=== PATIENT | male | born 1960 | race Caucasian/White ===

== ENCOUNTER 2020-02-25 11:37 | Outpatient (CLI) | payer OTHER, SELFPAY ==
--- NOTE | 2020-02-25 12:04 | ECG_ITS ---
[facility] Test Date: 2020-02-25 Pat Name: Brennen De La Cruz Department: Room: Gender: Male Curriculum Development Manager: Honey Gallardo : 1960 Requested By: Blanca Razo Order Number: [id number] Patrick MD: YUNIOR AGUIAR Interpretive Statements NAME OF STUDY: TREADMILL STRESS TEST INDICATION: Chest Pain EXERCISE DATA: The patient was exercised by Jean-Claude protocol. Baseline heart rate was 56 beats per minute. Baseline blood pressure was 147/90 millimeters of mercury. Target heart rate was 163 beats per minute. Maximum heart rate achieved was 158, which was 96 % of the target heart rate. Maximum blood pressure was 219/102 millimeters of mercury. Total exercise time was 8 minutes 41 seconds. Maximum METs achieved was 10.2, maximum VO2 was 35.7. The reason for ending the test was maximum effort achieved. The patient complained of shortness of breath during the stress test, which then resolved at the end of the test. ELECTROCARDIOGRAM: BASELINE: Sinus rhythm, normal axis, no significant ST-T changes at the baseline noted. EXERCISE: At the peak exercise level, no significant ST-T changes suggestive of ischemia noted. RECOVERY: During the recovery period, heart rate dropped appropriately. No significant ST-T changes in the recovery suggestive of ischemia noted. CONCLUSION: 1. Exercise capacity good. 2. Heart rate response was appropriate. 3. Blood pressure response was hypertensive. 4. Symptoms not suggestive of ischemia. 5. Electrocardiogram portion of the stress test was not suggestive of ischemia. Electronically Signed On 03-14-2020 15:12:37 DIESEL SERVICE JOURNEYMAN by YUNIOR AGUIAR [id number]
[2020-02-25 12:08] VITALS: BMI 23.7
[2020-02-25 12:41] VITALS: BP 177/100; PULSE 99
== END 2020-02-25 11:38 | disposition home or self-care (01) ==
LOC: CDL 11:40
PROVIDERS: PCP Family Medicine; Visit Provider Family Medicine
DX: R00.0 Tachycardia, unspecified (principal)
CPT/HCPCS: 93017

== ENCOUNTER 2023-04-12 22:07 | Inpatient (IN) | payer OTHER, SELFPAY ==
[2023-04-12 22:10] VITALS: BP 131/107; PULSE 182; RESP 18; TEMP 36.4; O2SAT 100; BMI 25.7
--- NOTE | 2023-04-12 22:19 | XRR_ITS ---
PROCEDURE INFORMATION: Exam: XR Chest Exam date and time: 04/12/2023 10:26 PM Age: 62 years old Clinical indication: Other: Palpitations TECHNIQUE: Imaging protocol: Radiologic exam of the chest. Views: 1 view. COMPARISON: No relevant prior studies available. FINDINGS: Lungs: Unremarkable. No consolidation. Pleural spaces: Unremarkable. No pleural effusion. No pneumothorax. Heart/Mediastinum: Unremarkable. No cardiomegaly. Bones/joints: Unremarkable. XR/XR chest 1V portable [id number] IMPRESSION: No acute findings.
--- NOTE | 2023-04-12 22:19 | ECG_ITS ---
[facility] Test Date: 2023-04-12 Pat Name: Brennen De La Cruz Department: Room: Gender: Male Visual Merchandise Manager: : 1960 Requested By: Oneil West Order Number: [id number] Nguyen MD: Ariel Amaya M.D. Measurements Intervals [place] Rate: 83 P: 76 DC: 157 QRS: 74 QRSD: 89 T: 69 QT: 368 QTc: 434 Interpretive Statements SINUS RHYTHM No previous ECG available for comparison Electronically Signed On 04-13-2023 8:20:12 SUBSCRIPTION AGENT by Ariel Amaya M.D. [id number]
[2023-04-12] MEDS: dilTIAZem 5 mg/mL SDV 5 mL 20 MG IVP (22:26)
[2023-04-12] MEDS: sodium chloride 0.9% 1,000 ML 999 ML IV (22:28)
[2023-04-12 22:29] LABS: Basophils # 0.1 10^3/uL (0.0-0.1); Basophils % 0.6 %; Eosinophils # 0.1 10^3/uL (0.0-0.8); Hematocrit 48.5 % (37-53); Lymphocytes # 1.9 10^3/uL (0.8-4.8); Lymphocytes % 18.5 %; Mean Corpuscular HGB Conc 35.3 g/dL (30-55); Mean Corpuscular Hemoglobin 33.8 pg (27-33); Mean Corpuscular Volume 95.8 fl (82-101); Mean Platelet Volume 10.2 fL (7.4-10.4); Monocytes # 0.8 10^3/uL (0.2-0.9); Monocytes % 7.6 %; Neutrophils # 7.22 10^3/uL (1.8-7.7); Nucleated Red Blood Cells % 0 %; Platelet Count 215 10^3/cmm (157-399); Red Blood Count 5.06 10^6/uL (3.85-5.65); Red Cell Distribution Width 12.8 % (12.1-15.1); White Blood Count 10.02 10^3/uL (3.29-11.43)
--- NOTE | 2023-04-12 22:30 | ED_ITS ---
HPI - Arrhythmia/Palpitations 2 General: Chief Complaint: Arrhythmia/Palpitations Stated Complaint: Chest Pains\Feeling Sick Time Seen by Provider: 04/12/23 22:30 History of Present Illness: 62-year-old male presents emerged part w ith complaints of feeling like his heart is racing. He states this started approximately 1 and half hours prior to arrival. He states he does feel nauseated and dizzy. He states he is generally healthy person and has had no history of cardiac abnormalities. He states that he takes no medication at present. He states that his chest discomfort was a 5 out of 10 when his heart started racing. He states he does smoke three quarters of a pack of cigarettes daily and drinks a pint of Aisha Obinna daily. Review of Systems 2 General: Reports: 10 or more systems reviewed and unremarkable except in HPI and below Card: Reports: palpitations and irregular heart rhythm Physical Exam 2 Narrative: EXAM NARRATIVE: Constitutional: the patient appears well nourished and with normal development. Vital signs reviewed as documented. HENMT: Normocephalic, atraumatic. Extermal ears with normal appearance without drainage. Nose without drainage, normal appearance. Mucus membranes moist. Neck is supple, No jugular venous distension, trachea is midline, no appreciable carotid bruits. No lymphadenopathy. No meningeal signs. Flexion, extension and lateral rotation is without pain. Eyes: Pupils are equal, round, reactive to light and accommodation. No scleral icterus. Extra-ocular movement are intact. Thorax is symmetrical and with equal rise and fall with respirations. Resp: Lungs are clear to auscultation. No wheezes, rales, crackles or ronchi at present. Cardio: Supraventricular tachycardia with a ventricular rate of 188. Positive S1, S2. No appreciable murmurs, rubs or gallops. GI: Abdominal exam reveals normal bowel sounds to all quadrants. No organomegaly. No obvious palpable masses noted. No hepatomegally appreciated. Soft, nontender to palpation. Extremity: Extremities are non-edematous and both femoral and pedal pulses are 2+ and equal bilaterally. Moves all extremities well, sensation in all extremities. Neuro: Alert and oriented x4, person, place, time and situation. Cranial nerves II through XII are grossly intact, there is no focal neurological deficits that I can appreciate at present. Motor strength in the upper and lower extremities are equal and bilateral 5/5. Psych: Cooperative, calm, normal thought process, appropriate judgment. Skin: No lesions, rashes. No gross abnormalities noted. Back: Symmetrical, no obvious deformity, No CVA tenderness Course 2 Vital Signs: Vital signs: Vital Signs Temperature 97.6 F 04/12/23 22:10 Pulse Rate 182 H 04/12/23 22:10 Respiratory Rate 18 04/12/23 22:10 Blood Pressure 131/107 04/12/23 22:10 Pulse Oximetry 100 04/12/23 22:10 Oxygen Delivery Me thod Room Air 04/12/23 22:10 MDM - Arrhythmia/Palpitations Medical Decision Making Physical exam completed document, will obtain cardiac enzymes, twelve-lead EKG chest x-ray obtain a CBC and a CMP as well as provide him IV access and calcium channel renée as well as calcium channel renée drip for his rate control cardiac rhythm. I will provide him admission for additional evaluation treatment and care and consult the hospitalist service for additional evaluation treatment and care to potentially include a cardiology evaluation. Lab Data I reviewed the patient's lab results. 04/12/23 22:23 04/12/23 22:23 Radiology Impressions Chest X-Ray 04/12/23 22:19 IMPRESSION: No acute findings. Laboratory Results WBC 10.02 10^3/uL (3.29-11.43) 04/12/23 22: RBC 5.06 10^6/uL (3.85-5.65) 04/12/23 22: Hgb 17.10 g/dL (11.27-16.99) H 04/12/23 22: Hct 48.5 % (37-53) 04/12/23 22: MCV 95.8 fl (82-101) 04/12/23 22: MCH 33.8 pg (27-33) H 04/12/23 22: MCHC 35.3 g/dL (30-55) 04/12/23 22: RDW 12.8 % (12.1-15.1) 04/12/23 22: Plt Count 215 10^3/cmm (157-399) 04/12/23 22: MPV 10.2 fL (7.4-10.4) 04/12/23: Neut % (Auto) 72.0 % 04/12/23 22:23 Lymph % (Auto) 18.5 % 04/12/23 22:23 [place] % (Auto) 7.6 % 04/12/23 22:23 Eos % (Auto) 1.0 % 04/12/23 22:23 Baso % (Auto) 0.6 % 04/12/23 22:23 Neut # (Auto) 7.22 10^3/uL (1.8-7.7) 04/12/23 22:23 Lymph # (Auto) 1.9 10^3/uL (0.8-4.8) 04/12/23 22:23 [place] # (Auto) 0.8 10^3/uL (0.2-0.9) 04/12/23 22:23 Eos # (Auto) 0.1 10^3/uL (0.0-0.8) 04/12/23 22:23 Baso # (Auto) 0.1 10^3/uL (0.0-0.1) 04/12/23 22:23 Nucleated RBC % (auto) 0 % 04/12/23 22: Nucleated RBCs # 0.0 /100WBC 04/12/23 22:23 PT 12.60 SECONDS (12.1-14.9) 04/12/23 22:23 INR 0.91 (0.8-1.2) 04/12/23 22:23 APTT 28.6 SECONDS (23.9-36.7) 04/12/23 22:23 Sodium 138 mmol/L (136-145) 04/12/23 22:23 Potassium 4.2 mmol/L (3.5-5.1) 04/12/23 22:23 Chloride 98 mmol/L (98-107) 04/12/23 22:23 Carbon Dioxide 23 mmol/L (22-29) 04/12/23 22:23 Anion Gap 21.2 (5-19) H 04/12/23 22:23 BUN 12 mg/dL (8-23) 04/12/23 22:23 Creatinine 1.0 mg/dL (0.7-1.2) 04/12/23 22:23 GFR Calculation 76.2 mL/min (90-130) L 04/12/23 22:23 Glucose 144 mg/dL (65-115) H 04/12/23 22:23 Calculated Osmolality 288 mOsm/kg (285-295) 04/12/23 22:23 Calcium 9.7 mg/dL (8.5-10.5) 04/12/23 22:23 Total Bilirubin 0.5 mg/dL (0.15-1.2) 04/12/23 22:23 AST 106 U/L (0-40) H 04/12/23 22:23 ALT 70 U/L (0-41) H 04/12/23 22:23 Alkaline Phosphatase 80 U/L (40-130) 04/12/23 22:23 Troponin T Baseline 12 ng/L (0-15) 04/12/23 22:23 NT-Pro-B Natriuret Pep 158 pg/mL (0-125) H 04/12/23 22:23 Total Protein 7.6 g/dL (6.6-8.7) 04/12/23 22:23 Albumin 4.8 g/dL (3.5-5.2) 04/12/23 22:23 Globulin 2.8 g/dL (1.3-4.6) 04/12/23 22:23 All radiology interpretation(s) finalized by discharge EKG Data EKG 1: Interpretation: Twelve-lead EKG obtained at 2216 reviewed at 2216 shows supraventricular tachycardia with a ventricular rate of 182. QRS duration 83 QT 243 QTc 338 there is no discernible ST elevation or depression to demonstrate acute ischemia at present. Other EKG comments: Chest X-Ray 04/12/23 22:19 IMPRESSION: No acute findings. Discharge Plan Discharge Patient Disposition: Admitted As Inpatient Clinical Impression: Supraventricular tachycardia Chest pain Qualifiers: Chest pain type: unspecified Qualified Code(s): R07.9 - Chest pain, unspecified Condition: Stable Coding Level of Care Code ED Physician Coder for Ady Aleman
[2023-04-12] MEDS: dilTIAZem 100 MG in sodium chloride 0.9% (add-van) 100 ML IV (22:47)
[2023-04-12 22:49] LABS: Troponin(5th) Baseline 12 ng/L (0-15)
[2023-04-12 22:58] LABS: Alanine Aminotransferase 70 U/L (0-41); Albumin Level 4.8 g/dL (3.5-5.2); Alkaline Phosphatase 80 U/L (40-130); Anion Gap 21.2 (5-19); Aspartate Amino Transferase 106 U/L (0-40); Blood Urea Nitrogen 12 mg/dL (8-23); Calcium 9.7 mg/dL (8.5-10.5); Carbon Dioxide 23 mmol/L (22-29); Chloride 98 mmol/L (98-107); Creatinine Clr Calc Pharmacy 90.0369; Globulin 2.8 g/dL (1.3-4.6); Glomerular Filtration Rate 76.2 mL/min (90-130); Glucose 144 mg/dL (65-115); NT Pro B Type Natriuretic Pept 158 pg/mL (0-125); Osmolality Calculated 288 mOsm/kg (285-295); Potassium 4.2 mmol/L (3.5-5.1); Sodium 138 mmol/L (136-145); Total Bilirubin 0.5 mg/dL (0.15-1.2); Total Protein 7.6 g/dL (6.6-8.7)
[2023-04-12 23:10] LABS: INR 0.91 (0.8-1.2)
[2023-04-12 23:11] LABS: Partial Thromboplastin Time 28.6 SECONDS (23.9-36.7)
--- NOTE | 2023-04-12 23:14 | P.HP_ITS ---
Providers/Chief Complaint 2 Primary Care Provider: Blanca Mg MD Chief Complaint: Chest Pains\Feeling Sick History of Present Illness Brennen De La Cruz is a 62 year old male who does not have signet past medical history, 2 years ago status post unremarkable, drinks alcohol 1 pint every day, presented with chief complaint palpitation. Patient stating that his symptoms started around 7 PM when he came back from watching basketball game of his grandchild. Patient did not experience any chest pain nausea vomiting or fever. No recent shortness of breath or any triggering event. Patient only had couple of shots today. Does not use any marijuana. In the ER he was diagnosed with SVT he was given adenosine high-dose 12 mg per the ER physician which did not improve his heart rate he was put on Cardizem drip for concern of atrial flutter I have requested TSH, mag level and D-dimer Patient is stating that he has not experienced palpitations in a long time, never had any cardiac issues in the past Review of Systems 2 Const: Denies: fever(s) Eyes: Denies: change in vision ENMT: Denies: throat pain Card: Reports: palpitations; Denies: chest pain Resp: Denies: dyspnea GI: Denies: abdominal pain Medications/Allergies Allergies Allergy/AdvReac Type Severity Reaction Status Date / Time No Known Allergies Allergy Verified 04/12/23 22:33 PFSH Acute 2 PFSH: Medical History No pertinent past medical history Surgical History No pertinent past surgical history Social History (Updated 04/13/23 @ 00:02 by Krista Mullins MD) Alcohol intake: current Alcohol intake frequency: 3 or more drinks per day Alcohol type: hard liquor Vitals/I&O/Wt Last Vital Signs Temp 97.6 F 04/12/23 22:10 Pulse 182 H 04/12/23 22:10 Resp 18 04/12/23 22:10 BP 131/107 04/12/23 22:10 Pulse Ox 100 04/12/23 22:10 O2 Del Method Room Air 04/12/23 22:10 04/12/23 04/12/23 04/13/23 14:59 22:59 06:59 Intake Total 1000 / 1000 Balance 1000 / 1000 Weight last 48 hrs Weight 86.183 kg Physical Exam 2 Narrative: Patient is awake and alert GCS 15 Euvolemic S1, S2 currently in sinus rhythm heart rate in 70s Continue Cardizem drip at 5 Abdomen soft No sign of heart failure GCS 15 Currently Pleasant and cooperative Daughter at the bedside Data 04/12/23 22:23 04/12/23 22:23 A&P Assessment and plan (1) Supraventricular tachycardia: (2) Chest pain: Qualifiers: Chest pain type: unspecified Qualified Code(s): R07.9 - Chest pain, unspecified Plan Tachyarrhythmia, palpitations, related to SVT Heart rate in the ER 180s Patient currently on Cardizem drip Did not respond to adenosine Concern for atrial flutter [id number] score is low to prevent any blood thinner at this point Currently patient is in sinus rhythm on Cardizem drip Add metoprolol, wean off Cardizem drip Will use Lovenox 40 mg DVT prophylaxis Check magnesium TSH free T4 D-dimer and echo I do believe his symptoms are related to alcohol abuse He drinks 1 pint of hard liquor, will put him on CIWA protocol We will check drug screen and alcohol level Full code Cardiac diet Attestations 2 Medical Necessity Statement*: More than 2 midnights anticipated Diagnoses Supraventricular tachycardia I47.10 Chest pain R07.9 Chest pain type: unspecified
[2023-04-12 23:26] VITALS: BP 136/96; PULSE 85; RESP 16; O2SAT 98
[2023-04-12 23:51] LABS: Thyroid Stimulating Hormone 5.06 uIU/mL (0.27-4.20)
--- NOTE | 2023-04-13 00:05 | USCV_ITS ---
Brennen De La Cruz Age: 62 Gender: M : 1960 Exam Date: 04/13/2023 01:38 Ordering Phys: Krista Mullins MD Technologist: Jean-Claude Serrano [place] [facility] [place]: SVT. No history of cardiac intervention per patient. BP: 136 / 96 HR: 70 Rhythm: Sinus Technical Quality: Adequate MEASUREMENTS (Male / Female) Normal Values 2D ECHO LV Diastolic Diameter PLAX 3.7 cm 4.2 - 5.9 / 3.9 - 5.3 cm LV Systolic Diameter PLAX 2.7 cm IVS Diastolic Thickness 0.9 cm 0.6 - 1.0 / 0.6 - 0.9 cm IVS Systolic Thickness 1.2 cm LVPW Diastolic Thickness 0.7 cm 0.6 - 1.0 / 0.6 - 0.9 cm LVPW Systolic Thickness 1.1 cm LVOT Diameter 2.0 cm LV Ejection Fraction 2D Teich 55.6 % LV Ejection Fraction MOD 2C 69.3 % LV Ejection Fraction 2C AL 71.4 % LA Diameter 2.5 cm LA Width 2.6 cm LA Height 4.5 cm RA Width 3.0 cm RA Height 3.8 cm Aorta at Sinotubular Diameter 3.3 cm IVC Diameter 1.3 cm M-MODE Aortic Annulus Diameter 3.2 cm LA Ao Ratio MM 0.8 MV E Point Septal Separation 0.2 cm DOPPLER AV Peak Velocity 109.0 cm/s LVOT Peak Velocity 98.0 cm/s AV Area Cont Eq vti 2.7 cm squared AV Area Cont Eq pk 2.7 cm squared MV Area PHT 3.7 cm squared Mitral E to A Ratio 1.3 MV E' Velocity 48.5 cm/s Mitral E to MV E' Ratio 8.7 Mitral E to LV E' Lateral Ratio 8.0 Mitral E to LV E' Septal Ratio 9.7 TV Peak E Velocity 48.0 cm/s PV Peak Velocity 88.0 cm/s RV Acceleration Time 0.1 s RV Ejection Time 0.3 s RV AcT/ET 0.3 FINDINGS Left Ventricle Normal left ventricular size and systolic function, EF 64 %. No regional wall motion abnormalities. Right Ventricle The right ventricle is normal in size and function. Right Atrium The right atrium is normal in size. Left Atrium The left atrium is normal in size. Mitral Valve No gross abnormalities noted Aortic Valve Thickened aortic valve. Tricuspid Valve No gross abnormalities noted Pulmonic Valve Trace pulmonary valve regurgitation. Pericardium Normal pericardium without effusion. Aorta Aortic root, at the level of the isthmus, measured 3.7 cm IVC The inferior vena cava appears normal. CONCLUSIONS Normal left ventricular size and systolic function, EF 64 %. No regional wall motion abnormalities. Thickened aortic valve. Mildly dilated aortic root, measuring 3.7 cm in diameter at the level of the isthmus. There are no intracardiac masses. There is no pericardial effusion. No similar previous studies are available for comparison Dr Kelvin Shirley MD FAC (Electronically Signed) Final Date: 13 April 2023 12:23 S
[2023-04-13 00:07] VITALS: BMI 25.7
[2023-04-13 00:12] VITALS: BP 136/96; PULSE 85; RESP 16; TEMP 36.4; O2SAT 98
--- NOTE | 2023-04-13 00:19 | ECG_ITS ---
[facility] Test Date: 2023-04-13 Pat Name: Brennen De La Cruz Department: Room: 111 Gender: Male Grade Checker: : 1960 Requested By: Oneil West Order Number: [id number] Patrick MD: Kelvin Shirley M.D. Measurements Intervals [place] Rate: 64 P: 77 TX: 151 QRS: 76 QRSD: 93 T: 73 QT: 399 QTc: 414 Interpretive Statements SINUS RHYTHM Compared to ECG 04/12/2023 22:47:50 No significant changes Electronically Signed On 04-13-2023 21:50:38 THREAD SINGER by Kelvin Shirley M.D. [id number]
[2023-04-13 01:15] VITALS: PULSE 89; RESP 17; O2SAT 99
[2023-04-13] MEDS: metoprolol tartrate 25 mg Tablet PO ×2 (01:27→09:17)
[2023-04-13 01:42] LABS: Troponin 5 2HR 17.07 ng/L (0-15); Troponin 5 2HR Delta 5.07 ABS# (0-10)
[2023-04-13 01:43] LABS: Phosphorus 2.9 mg/dL (2.5-4.5)
[2023-04-13 01:50] LABS: Free T4 Free Thyroxine 1.09 ng/dL (0.82-1.77)
[2023-04-13 01:56] LABS: Alcohol Level < 10 mg/dL (0-10)
--- NOTE | 2023-04-13 04:19 | ECG_ITS ---
[facility] Test Date: 2023-04-13 Pat Name: Brennen De La Cruz Department: Room: 111 Gender: Male Environmental Program Manager: : 1960 Requested By: Oneil West Order Number: [id number] Patrick MD: Kelvin Shirley M.D. Measurements Intervals [place] Rate: 61 P: 62 HI: 147 QRS: 77 QRSD: 91 T: 96 QT: 440 QTc: 443 Interpretive Statements SINUS RHYTHM Compared to ECG 04/13/2023 01:24:16 No significant changes Electronically Signed On 04-13-2023 21:50:46 FLOOR SUPERVISOR by Kelvin Shirley M.D. [id number]
[2023-04-13 04:34] LABS: Basophils % 0.4 %; Eosinophils % 0.3 %; Hematocrit 48.6 % (37-53); Lymphocytes # 1.2 10^3/uL (0.8-4.8); Lymphocytes % 14.6 %; Mean Corpuscular HGB Conc 33.7 g/dL (30-55); Mean Corpuscular Hemoglobin 33.3 pg (27-33); Mean Corpuscular Volume 98.8 fl (82-101); Mean Platelet Volume 10.6 fL (7.4-10.4); Monocytes # 0.4 10^3/uL (0.2-0.9); Monocytes % 4.4 %; Neutrophils # 6.31 10^3/uL (1.8-7.7); Neutrophils % 79.9 %; Nucleated Red Blood Cells % 0 %; Platelet Count 216 10^3/cmm (157-399); Red Blood Count 4.92 10^6/uL (3.85-5.65); Red Cell Distribution Width 12.8 % (12.1-15.1); White Blood Count 7.89 10^3/uL (3.29-11.43)
[2023-04-13 04:55] LABS: Troponin 5 6HR 15.63 ng/L (0-15); Troponin 5 6HR Delta 3.63 ng/L (0-12)
[2023-04-13 04:56] LABS: Anion Gap 15.7 (5-19); Blood Urea Nitrogen 10 mg/dL (8-23); Calcium 9.3 mg/dL (8.5-10.5); Carbon Dioxide 26 mmol/L (22-29); Chloride 98 mmol/L (98-107); Glomerular Filtration Rate 86.1 mL/min (90-130); Glucose 115 mg/dL (65-115); Osmolality Calculated 280 mOsm/kg (285-295); Potassium 4.7 mmol/L (3.5-5.1); Sodium 135 mmol/L (136-145)
[2023-04-13] MEDS: enoxaparin 40 mg/0.4 mL Syringe SUBCUT (05:40)
[2023-04-13 06:00] VITALS: PULSE 62
[2023-04-13 07:30] VITALS: PULSE 71; RESP 16; O2SAT 97
[2023-04-13] MEDS: thiamine 100 mg Tablet PO (09:17)
[2023-04-13] MEDS: multivitamin therapeutic Tablet 1 TAB PO (09:17)
[2023-04-13] MEDS: magnesium oxide 400 mg tablet PO (09:17)
[2023-04-13] MEDS: folic acid 1 mg Tablet PO (09:17)
[2023-04-13] MEDS: lisinopril 10 mg Tablet PO (09:17)
--- NOTE | 2023-04-13 10:04 | PC.CHAP ---
Pastoral Care Encounter/Spiritual Assessment Type of Contact [] Declined director of partnerships visit [] Patient/Family/Request visit [] Outpatient visit [] Follow-up visit [] Physician referral [] Code/Alert [x] Routine visit [] Staff referral [] Actively dying [] Patient sleeping [] Family support [] [] Out of room [] Palliative care [] [] Receiving care in room [] Pre-surgical visit [] Trauma [] Long length of stay [] ICU visit [] Other: Relational/Emotional Strength [x] Patient feels connected with others/family/visitors/staff [] Distress [] Loneliness/isolation [] Abandonment Spirituality of Patient [] Person of Stephany [] Attends Restoration of their Stephany [] Believes in Prayer [] Reads Bible or Pentecostal materials [] There are Spiritual issues to be addressed Detacker Interventions [x] Prayer [] Active listening [] Non-anxious presence [x] Spiritual/emotional support [] Crisis/trauma care [] Spiritual counseling [] Bereavement support [] Provided bereavement packet [] Provided Bible/devotional materials [] Provided toy/stuffed animal, coloring book to patient or family member [] Provided Communion [] Anointing/Farber [] Salvation [] Completed spiritual assessment [] Other: Impact on Illness or Injury [] Angry [] Fearful [] Anxious [] Often cries [] Exhaustion [] Unable to work [] Unable to attend roman catholic [] Unable to walk/stand [] Unable to read [] Unable to drive [] Unable to eat/drink [] Unable to sleep [] Unable to be with family [] Patient intubated [] Other: Summary Time spent with patient 10 min
[2023-04-13 12:40] LABS: D Dimer 0.42 ug/mLFEU (0-0.59)
--- NOTE | 2023-04-13 14:15 | PM.PN ---
Vitals/I&O/Wt Last Vital Signs Temp 97.6 F 04/13/23 00:12 Pulse 71 04/13/23 07:30 Resp 16 04/13/23 07:30 BP 136/96 04/13/23 00:12 Pulse Ox 97 04/13/23 07:30 O2 Del Method Room Air 04/13/23 07:30 04/12/23 04/13/23 04/13/23 22:59 06:59 14:59 Intake Total 1265.5 / 1265.5 120 / 120 Balance 1265.5 / 1265.5 120 / 120 Weight last 48 hrs Weight 86.183 kg Weight 86.183 kg Data 04/13/23 04:08 04/13/23 04:08 Coding Level of Care Code Acute Code for Chg Fwd
--- NOTE | 2023-04-13 15:20 | PM.DCS ---
Discharge Providers Date of Admission: 04/12/23 23:19 Date of Discharge: April 13, 2023 Attending Provider at Admission: Krista Mullins MD Attending Provider at Discharge: Krista Mullins MD Primary Care Provider: Blanca Mg MD Diagnoses at Discharge Discharge Diagnosis (1) Supraventricular tachycardia: Status: Inactive (2) Chest pain: Status: Acute Qualifiers: Chest pain type: unspecified Qualified Code(s): R07.9 - Chest pain, unspecified Reason for Visit Reason for Visit: Chest Pains\Feeling Sick Hospital Course Hospital Course Mr. De La Cruz is a 62yo man w/ no significant PMHx but a current hx of severe alcohol use d/o (drinks 1pint of whisky daily), who was brought to the ED on the night of 04/12/2023 for palpitations. The patient states that he was at a [employer] basketball game when he went outside to smoke a cigarette. He smoked half of his cigarette and started to feel light headed, dizziness, palpitations,and diaphoretic. When he returned home, he felt malaise and told his daughter that he did not feel well, so he went to the ER. In the ED, he was in SVT and was converted Diltiazem 20mg IVP x 1, then started on a Diltiazem drip. He converted at 1:53am today on the floor, so Dilt drip was d/c'ed. Today he has No f/c, light headedness, dizziness, abdominal pain, n/v, cp, palpitations, SOB, dysuria, hematuria, melena, hematochezia. I spoke w/ Cards on-call who recommended d/c w/ follow up in clinic, so he was d/c'ed w/ Metoprolol tartrate 25mg BID as well as folic acid, thiamine and a daily multivitamin. Physical Exam Const: NUTRITIONAL APPEARANCE: obese OTHER: resting comfortably in bed, AOX4 HENMT: OTHER: NCAT, external ears & nose normal, clear oropharynx Eye: OTHER: no icteric sclera or pale conjunctiva. PEERL, EOMI. Neck/C-Spine: COMMON NORMALS: Thyroid normal GENERAL: Yes normal visual inspection and Yes trachea midline THYROID: Thyroid normal CAROTIDS: No bruit Lymph: OTHER: No cervical or supraclavicular lymphadenopathy Resp: OTHER: diminishing to absent breath sounds in the b/l lower lung crystal. Cardio: OTHER: RRR, no murmurs, rubs, gallops or clicks GI: OTHER: BS +, NT, ND, no guarding, rigidity or rebound tenderness. Extremity: OTHER: no cyanosis, no clubbing, or b/l pedal edema. Neuro: OTHER: CN II- XII intact, 5/5 motor strength intact bilaterally w/ normal muscle tone throughout, sensation intact, normal speech Psych: OTHER: normal appearance, calm and engaged, but slightly defensive attitude when an attempt to address his drinking is made, normal speech, euthymic mood, normal attention. Skin: NARRATIVE SKIN EXAM: no rashes or lesions noted. Discharge Data Studies Completed and Pending Completed Studies During Hospitalization Category Date Time Status XR chest 1V portable [id number] Stat Exams 04/12/23 22:19 Completed CV. echo complete* [id number] Routine Ultrasound 04/13/23 00:05 Completed Pending at discharge Category Date Time Status Drug Screen, Urine Routine Lab 04/13/23 00:04 Uncollected Radiology Impressions Chest X-Ray 04/12/23 22:19 IMPRESSION: No acute findings. Laboratory Results WBC 7.89 10^3/uL (3.29-11.43) 04/13/23 04:08 RBC 4.92 10^6/uL (3.85-5.65) 04/13/23 04:08 Hgb 16.40 g/dL (11.27-16.99) 04/13/23 04:08 Hct 48.6 % (37-53) 04/13/23 04:08 MCV 98.8 fl (82-101) 04/13/23 04:08 MCH 33.3 pg (27-33) H 04/13/23 04:08 MCHC 33.7 g/dL (30-55) 04/13/23 04:08 RDW 12.8 % (12.1-15.1) 04/13/23 04:08 Plt Count 216 10^3/cmm (157-399) 04/13/23 04:08 MPV 10.6 fL (7.4-10.4) H 04/13/23 04:08 Neut % (Auto) 79.9 % 04/13/23 04:08 Lymph % (Auto) 14.6 % 04/13/23 04:08 [place] % (Auto) 4.4 % 04/13/23 04:08 Eos % (Auto) 0.3 % 04/13/23 04:08 Baso % (Auto) 0.4 % 04/13/23 04:08 Neut # (Auto) 6.31 10^3/uL (1.8-7.7) 04/13/23 04:08 Lymph # (Auto) 1.2 10^3/uL (0.8-4.8) 04/13/23 04:08 [place] # (Auto) 0.4 10^3/uL (0.2-0.9) 04/13/23 04:08 Eos # (Auto) 0.0 10^3/uL (0.0-0.8) 04/13/23 04:08 Baso # (Auto) 0.0 10^3/uL (0.0-0.1) 04/13/23 04:08 Nucleated RBC % (auto) 0 % 04/13/23 04:08 Nucleated RBCs # 0.0 /100WBC 04/13/23 04:08 PT 12.60 SECONDS (12.1-14.9) 04/12/23 22:23 INR 0.91 (0.8-1.2) 04/12/23 22:23 APTT 28.6 SECONDS (23.9-36.7) 04/12/23 22:23 D-Dimer 0.42 ug/mLFEU (0-0.59) 04/12/23 22:23 Sodium 135 mmol/L (136-145) L 04/13/23 04:08 Potassium 4.7 mmol/L (3.5-5.1) 04/13/23 04:08 Chloride 98 mmol/L (98-107) 04/13/23 04:08 Carbon Dioxide 26 mmol/L (22-29) 04/13/23 04:08 Anion Gap 15.7 (5-19) 04/13/23 04:08 BUN 10 mg/dL (8-23) 04/13/23 04:08 Creatinine 0.9 mg/dL (0.7-1.2) 04/13/23 04:08 GFR Calculation 86.1 mL/min (90-130) L 04/13/23 04:08 Glucose 115 mg/dL (65-115) 04/13/23 04:08 Calculated Osmolality 280 mOsm/kg (285-295) L 04/13/23 04:08 Calcium 9.3 mg/dL (8.5-10.5) 04/13/23 04:08 Phosphorus 2.9 mg/dL (2.5-4.5) 04/13/23 01:10 Magnesium 2.0 mg/dL (1.7-2.3) 04/13/23 04:08 Total Bilirubin 0.5 mg/dL (0.15-1.2) 04/12/23 22: AST 106 U/L (0-40) H 04/12/23 22: ALT 70 U/L (0-41) H 04/12/23 22: Alkaline Phosphatase 80 U/L (40-130) 04/12/23 22:23 Troponin T Baseline 12 ng/L (0-15) 04/12/23 22: Troponin T 120 Minute 17.07 ng/L (0-15) H 04/13/23 01:10 Delta Troponin T 5.07 ABS# (0-10) 04/13/23 01:10 Troponin T Hi Sens 6Hr 15.63 ng/L (0-15) H 04/13/23 04:08 Troponin T Hi Sens 6Hr Delta 3.63 ng/L (0-12) 04/13/23 04:08 NT-Pro-B Natriuret Pep 158 pg/mL (0-125) H 04/12/23 22: Total Protein 7.6 g/dL (6.6-8.7) 04/12/23 22: Albumin 4.8 g/dL (3.5-5.2) 04/12/23 22: Globulin 2.8 g/dL (1.3-4.6) 04/12/23 22: TSH 5.06 uIU/mL (0.27-4.20) H 04/12/23 22:23 Free T4 1.09 ng/dL (0.82-1.77) 04/13/23 01:10 Ethyl Alcohol < 10 mg/dL (0-10) 04/13/23 01:10 Vitals Last Vital Signs Temp 97.6 F 04/13/23 00:12 Pulse 71 04/13/23 07:30 Resp 16 04/13/23 07:30 BP 136/96 04/13/23 00:12 Pulse Ox 97 04/13/23 07:30 O2 Del Method Room Air 04/13/23 07:30 Discharge Plan Discharge Patient Disposition: Home Condition: Stable Prescriptions: New Vitamin B-1 (mononitrate) 100 mg Tablet 100 mg PO DAILY Qty: 20 0RF folic acid 1 mg tablet 1 mg PO DAILY Qty: 7 0RF metoprolol tartrate 25 mg Tablet 25 mg PO BID@0900,2100 Qty: 60 0RF Thera 400 mcg Tablet 1 tab PO DAILY Qty: 30 0RF Discharge Orders: Discharge Order (Routine); Ordered 04/13/23 Ordered By: Tonya Fine Referrals: Blanca Mg MD [Primary Care Provider] - (Please call Mike Ulloa for an follow-up appointment within 4 to 7 days. Thnak you! ) Kelvin Shirley MD [Physician] - 3 weeks (New onset Paroxysmal Supraventricular tachycardia We have notified your physician's clinic of the need for a follow-up appointment to be scheduled. If you have not heard from them within the next 2 business days, please call them directly. ) Patient Instructions: Metoprolol (By mouth), Thiamine (By mouth), Folic Acid (By mouth), Multivitamins, Adult Formula (By mouth) (Daily Multiple Vitamins,..., Supraventricular Tachycardia (DC), Chest Pain (DC), Chest Pain Stoplight, Opioid Safety Discharge Attestations Time Spent in Discharge Care*: greater than 30 min Quality Metrics Clinical Quality Measures [ No reported AMI, CVA or VTE this stay] Coding Level of Care Code Acute Code for Chg Fwd Diagnoses Supraventricular tachycardia I47.10 Chest pain R07.9 Chest pain type: unspecified
[2023-04-13 15:58] VITALS: PULSE 71; RESP 16; O2SAT 97
[2023-04-13] MEDS: thiamine 100 mg Tablet 400 MG PO (16:00)
--- NOTE | 2023-04-13 16:29 | PC.NURSE ---
Discharge Note Patient discharged to home via POV accompanied by family. Discharge instructions reviewed with patient and/or credit resolution representative. Mobile pharmacy medications and/or prescriptions provided. Belongings/home medications returned.
== END 2023-04-13 16:29 | disposition home or self-care (01) | DRG 310 ==
LOC: ER 22:35 → CSU 23:45
PROVIDERS: Admitting Provider Internal Medicine; Emergency Provider Internal Medicine; PCP Family Medicine; Visit Provider Internal Medicine
DX: I47.10 Supraventricular tachycardia, unspecified (principal); F17.210 Nicotine dependence, cigarettes, uncomplicated; F10.10 Alcohol abuse, uncomplicated
CPT/HCPCS: 36415; 71045; 80048; 80053; 80307; 83735; 83880; 84100; 84439; 84443; 84484; 85025; 85378; 85610; 85730; 93005; 93306; 96365; 96366; 96372; 96375; 99285; J1650; J3411; J3490; J7030